=== PATIENT | male | born 1955 | race Two or more races ===

== ENCOUNTER → 2024-10-08 | Outpatient (CLI) | payer MEDICARE, MEDICAID, SELFPAY ==
--- NOTE | 2024-10-08 15:33 | XR_ITS ---
Examination: PA lateral chest 2 views TECHNIQUE: Upright PA lateral chest 2 views Exam date and time: October 08, 2024 1538 hours Comparison June 21, 2023 INDICATIONS: Coughing beginning 4 days ago. FINDINGS: Mild pneumonia left base obscuring detail left hemidiaphragm Normal heart size Right lung clear IMPRESSION: Mild pneumonia left base
== END | disposition home or self-care (01) ==
PROVIDERS: PCP Family Medicine; Referring Provider Family Medicine; Visit Provider Family Medicine
DX: J18.9 Pneumonia, unspecified organism (principal)
CPT/HCPCS: 71046

== ENCOUNTER 2024-12-04 07:55 | Day surgery (SDC) | payer MEDICARE, MEDICAID, SELFPAY ==
[2024-12-03 14:40] VITALS: BMI 28.7
[2024-12-04] VITALS (8 sets, daily range): BP systolic 122–149; BP diastolic 64–70; PULSE 53–66; RESP 10–17; TEMP 36.2–36.4; O2SAT 93–98; BMI 29.1
[2024-12-04] MEDS: BENZOCAINE 20% (Hurricaine) SPRAY 1 DOSE TOP (09:49)
[2024-12-04] MEDS: MIDAZOLAM INJ 1 MG/ML VIAL 2 ML (ASD USE ONLY) 2 MG IVP (09:56)
[2024-12-04] MEDS: fentaNYL CIT INJ 50 mCg/ML AMP 2ML (ASD USE ONLY) IVP (09:56)
[2024-12-04] MEDS: DiphenhydrAMINE INJ 50 MG/ML VIAL 25 MG IVP (09:57)
[2024-12-04] MEDS: RINGERS LACTATED 1000 ML 1,000 ML 125 ML IV (09:58)
--- NOTE | 2024-12-04 10:19 | SUR.PHASEII ---
PT MORE AWAKE SITING IN THE GURNEY AND DRINKING WATER.
== END 2024-12-04 10:42 | disposition home or self-care (01) ==
PROVIDERS: PCP Family Medicine; Referring Provider Internal Medicine Gastroenterology; Visit Provider Internal Medicine Gastroenterology
PROC: (CPT 43239; principal; 2024-12-04 08:45)
DX: K29.70 Gastritis, unspecified, without bleeding (principal); K29.50 Unspecified chronic gastritis without bleeding; K20.80 Other esophagitis without bleeding
CPT/HCPCS: 43239; J1200; J2250; J3010; J7120; A9270

== ENCOUNTER 2024-12-06 07:07 | Day surgery (SDC) | payer MEDICARE, MEDICAID, SELFPAY ==
[2024-12-05 11:06] VITALS: BMI 28.7
[2024-12-06] VITALS (11 sets, daily range): BP systolic 125–171; BP diastolic 58–86; PULSE 45–55; RESP 11–18; TEMP 36.3–36.6; O2SAT 93–99; BMI 28.3
[2024-12-06] MEDS: MIDAZOLAM INJ 1 MG/ML VIAL 2 ML (ASD USE ONLY) 2 MG IVP (09:03)
[2024-12-06] MEDS: RINGERS LACTATED 1000 ML 1,000 ML 125 ML IV (09:03)
[2024-12-06] MEDS: fentaNYL CIT INJ 50 mCg/ML AMP 2ML (ASD USE ONLY) 25 MCG IVP (09:03)
== END 2024-12-06 10:13 | disposition home or self-care (01) ==
PROVIDERS: PCP Family Medicine; Referring Provider Internal Medicine Gastroenterology; Visit Provider Internal Medicine Gastroenterology
PROC: 0DBE8ZX Excision of Large Intestine, Via Natural or Artificial Opening Endoscopic, Diagnostic (ICD-10-PCS; CPT 45380; principal; 2024-12-06 08:15)
DX: K52.9 Noninfective gastroenteritis and colitis, unspecified (principal); K64.9 Unspecified hemorrhoids; K31.89 Other diseases of stomach and duodenum; K51.418 Inflammatory polyps of colon with other complication
CPT/HCPCS: 45385; 45380; J2250; J3010; J7120

== ENCOUNTER 2025-01-18 07:28 | Emergency (ER) | payer MEDICARE, MEDICAID, SELFPAY ==
[2025-01-18 07:40] VITALS: BP 149/80; PULSE 59; RESP 18; TEMP 36.7; O2SAT 96; BMI 28.7
[2025-01-18] MEDS: TETRACAINE PF OP SOL 0.5% 4 ML DRPETTE 1 DROP LEFT EYE (07:46)
[2025-01-18] MEDS: FLUORESCEIN SOD 1 MG STRP LEFT EYE (07:46)
--- NOTE | 2025-01-18 07:46 | EDNOTE_ITS ---
<Statement entered by Sara Feliz MD - 01/18/25 15:16> As co-signing physician, I was present and available for consult prn. I concur with the plan and care as documented by the midlevel provider. ED Eye Problem RME/HPI General Chief complaint: Eye Problems Stated complaint: Left eye pain X 3 days Time Seen by Provider: 01/18/25 07:37 Source: patient Arrival date/time: 01/18/25 07:28 69-year-old male with a history of hyperlipidemia, type 2 diabetes presents to the emergency room with a chief complaint of left eye redness and pain x 3 days. Patient states he was working with wood since then his left eye has been hurting. Mode of arrival: ambulatory Limitations: no limitations Related Data Home Medications ?Medication ?Instructions ?Recorded ?Confirmed atorvastatin 40 mg tablet 40 mg PO QDAY 06/05/1912/05 fluticasone propionate 50 1 spray intranasal QDAY 05/1412/05/24 mcg/actuation nasal spray,suspension (Flonase Allergy Relief) glimepiride 4 mg tablet 4 mg PO QAM 06/05/19 5 meclizine 25 mg tablet 25 mg PO QDAY PRN Dizziness 06/05/19 12/05/24 sitagliptin phosphate 50 1 tab PO BIDWM 06/05/1911/12 5/25 mg-metformin 1,000 mg tablet (Janumet) cetirizine 10 mg tablet 10 mg PO QDAY 12/04/2412/06 doxazosin 4 mg tablet 4 mg PO QDAY 12/04/24 empagliflozin 25 mg tablet 25 mg PO QAM 12/04/2412/05 (Jardiance) loratadine 10 mg tablet 10 mg PO Q24H 12/04/2412/06 ondansetron 8 mg disintegrating 8 mg PO Q8H 12/04/24 0 12/05/24 tablet Previous Rx's ?Medication ?Instructions ?Recorded ciprofloxacin HCl 0.3 % eye drops See Rx Instructions ophthalmic 01/18/25 (eye) .COMPLEX #5 mL Allergies Allergy/AdvReac Type Severity Reaction Status Date / Time No Known Allergies Allergy Verified 01/18/25 07:31 Review of Systems Review of Systems Systems Reviewed: All systems reviewed, normal except as documented Constitutional Constitutional: Reports system reviewed and no additional complaints, except as documented, Denies fatigue, Denies fever(s), Denies headache(s) and Denies weakness Eyes Eyes: Reports system reviewed and no additional complaints, except as documented, Reports blurry vision, Denies change in vision, Denies decreased night vision, Denies diplopia, Denies eye discharge, Denies exophthalmos, Denies floaters, Reports irritation, Denies itchy eyes, Denies loss of peripheral vision, Denies loss of vision, Denies other visual disturbances, Denies eye pain, Denies photophobia, Denies requires corrective lenses, Denies seeing flashes, Denies spots in vision and Denies tunnel vision ENT Ears, Nose, Mouth, and Throat: Reports system reviewed and no additional complaints, except as documented, Denies otalgia, Denies headache(s), Denies nasal congestion, Denies throat swelling and Denies vertigo Cardiovascular Cardiovascular: Reports system reviewed and no additional complaints, except as documented, Denies chest pain, Denies dyspnea and Denies dyspnea on exertion Respiratory Respiratory: Reports system reviewed and no additional complaints, except as documented, Denies chest congestion, Denies cough, Denies dyspnea, Denies dyspnea on exertion and Denies wheezing Gastrointestinal Gastrointestinal: Reports system reviewed and no additional complaints, except as documented, Denies abdominal pain, Denies cramping, Denies nausea and Denies vomiting Genitourinary Genitourinary: Reports system reviewed and no additional complaints, except as documented, Denies dysuria and Denies hematuria Musculoskeletal Musculoskeletal: Reports system reviewed and no additional complaints, except as documented and Denies back pain Integumentary/Breasts Skin/Breast: Reports system reviewed and no additional complaints, except as documented and Denies wounds Neurologic Neurologic: Reports system reviewed and no additional complaints, except as documented, Denies confusion, Denies headache(s), Denies lack of coordination, Denies loss of vision, Denies vertigo and Denies weakness Psychiatric Psychiatric: Reports system reviewed and no additional complaints, except as documented, Denies anxiety, Denies confusion, Denies depression, Denies paranoia, Denies suicidal ideation and Denies tactile hallucinations Endocrine Endocrine: Reports system reviewed and no additional complaints, except as documented and Denies fatigue Hematologic/Lymphatic Hematologic/Lymphatic: Reports system reviewed and no additional complaints, except as documented and Denies lymphadenopathy Allergic/Immunologic Allergic/Immunologic: Reports system reviewed and no additional complaints, except as documented, Denies itchy eyes, Denies throat swelling, Denies urticaria and Denies wheezing ED Exam General Limitations: Present no limitations General appearance: Present alert and in no apparent distress Head Head exam: Present atraumatic Eye Eye exam: Present normal appearance, PERRL and EOMI; Absent conjunctival injection, mydriasis, periorbital swelling or periorbital tenderness Expanded Eye Exam Eyelids: left: erythema Pupils: Bilateral: regular, round and reactive Sclera/Conjunctival: left: tenderness ENT ENT exam: Present normal exam, normal oropharynx and mucous membranes moist Neck Neck exam: Present normal inspection, full ROM and trachea midline Chest Chest inspection: Present normal inspection and symmetric chest wall rise Respiratory Respiratory exam: Present normal lung sounds bilaterally Cardiovascular Cardiovascular exam: Present regular rate, normal rhythm and normal heart sounds Abdominal Exam Abdominal exam: Present soft and normal bowel sounds Extremities Exam Extremities exam: Present normal inspection and full ROM Back Exam Back exam: Present normal inspection and full ROM Neurological Exam Neurological exam: Present alert, oriented X3 and CN II-XII intact Psychiatric Psychiatric exam: Present normal affect and normal mood Skin Skin exam: Present warm, dry, intact and normal color Course Quality Measures none Orders Category Date Time Status ED Eye Irrigation ONCE Care 01/18/25 07:40 Active Mora Lamp to Bedside X1 Care 01/18/25 07:40 Completed Fluorescein Sodium [Bio-Kate] Med 01/18/25 07:40 Discontinued 1 mg LEFT EYE X1 ONE TETRACAINE Op Mis 0.5% [Pontocaine Op Mis 0.5%] Med 01/18/25 07:40 Discontinued 1 drop LEFT EYE X1 ONE Vital Signs Vital signs: Vital Signs Temperature 98.0 F 01/18/25 07:40 Pulse Rate 59 L 01/18/25 07:40 Respiratory Rate 18 01/18/25 07:40 Blood Pressure 149/80 H 01/18/25 07:40 Pulse Oximetry (%) 96 01/18/25 07:40 Oxygen Delivery Method Room Air 01/18/25 07:40 Eye MDM Narrative MDM Narrative:: 69-year-old male with a history of hyperlipidemia, type 2 diabetes presents to the emergency room with a chief complaint of left eye redness and pain x 3 days. Patient states he was working with wood since then his left eye has been hurting. Patient is hemodynamically stable and in no apparent distress The patient denies any spots in the vision loss of vision loss of peripheral vision and states his only complaint is irritation in his eye and some mild blurry vision. Physical examination shows a very small foreign body in the left eye next to the iris. A cotton swab was used to remove the foreign body with no complications. A Mora lamp examination was then completed and found a corneal abrasion. There is no ulceration there is no Lyla sign there is no rust ring there is no hyphema Antibiotics are sent to the patient's pharmacy. Patient was educated to follow- up with primary care provider as a referral to an parking lot attendant may be needed if the signs and symptoms continue Patient was discharged and educated to follow-up with primary care provider in the next 24 to 48 hours and return to the emergency room for any evidence of worsening signs or symptoms Patient data External records reviewed:: [facility] previous records Clinical information provided by:: patient Social determinants that could affect healthcare access:: none Patient has the following chronic illnesses:: No chronic illness How is presenting disease/condition affected by chronic disease/condition?: no chronic disease Evaluation data The following diagnostics were reviewed and interpreted by me:: lab results and radiology exam(s) Lab and/or radiology exams considered but not ordered:: Labs and radiology exams considered and ordered Interpretation Summary: N/A Medications / Prescriptions Medications or Prescriptions considered but not ordered:: Medication given Medication administrations:: Medication Administration History Discontinued Medications Fluorescein Sodium (Fluorescein Sod 1 Mg Strp) 1 mg LEFT EYE X1 ONE Stop: 01/18/25 07:41 Last Admin: 01/18/25 07:46 Dose: 1 mg Documented By: NOLVIA Tetracaine HCl (Tetracaine Pf Op Mis 0.5% 4 Ml Drpette) 1 drop LEFT EYE X1 ONE Stop: 01/18/25 07:41 Last Admin: 01/18/25 07:46 Dose: 1 drop Documented By: NOLVIA Comments: MED GIVEN BY PANTRY WORKER LINDSAY Medication given Consultations Consultation(s) initiated? (list below): No Diagnosis Eye Problem Differential Diagnosis: corneal abrasion, conjunctivitis, acute iritis and corneal ulcer Most likely diagnosis given after review of the tests above:: Corneal abrasion Admission Indicated Admission indicated?: not indicated Admission Request Was there a request for admission?: No Disposition Plan Disposition Plan: Discharge Discharge Attestation Discharge Attestation: The patient and all family members were given an opportunity to ask questions and understood the discharge instructions. Discharge instructions specifically effects, indications for sooner follow up or return to the emergency department, and the expected course of current diagnosis. Patient condition: Stable Discharge Plan Plan Patient Disposition: HOME (Self Care) Discharge Disposition comment: Stable Prescriptions/Referrals Prescriptions/Med Rec: New ciprofloxacin HCl 0.3 % drops See Rx Instructions .ROUTE .COMPLEX Qty: 5 0RF Rx Instructions: put 1-2 drps in affected eye(s) every 2hr up to 8 times/day x2days; then 4 times/day x5days No Action atorvastatin 40 mg Tablet 40 mg PO QDAY glimepiride 4 mg Tablet 4 mg PO QAM fluticasone propionate [Flonase Allergy Relief] 50 mcg/actuation Spra y,Suspension 1 spray intranasal QDAY Janumet 50-1,000 mg Tablet 1 tab PO BIDWM meclizine 25 mg tablet 25 mg PO QDAY PRN (Reason: Dizziness) Jardiance 25 mg tablet 25 mg PO QAM cetirizine 10 mg tablet 10 mg PO QDAY Patient Comments: TAKE 1 TABLET BY MOUTH ONCE DAILY loratadine 10 mg tablet 10 mg PO Q24H Patient Comments: TAKE 1 TABLET BY MOUTH ONCE DAILY NEEDED FOR ALLERGIES doxazosin 4 mg tablet 4 mg PO QDAY Patient Comments: TAKE 1 TABLET BY MOUTH ONCE DAILY ondansetron 8 mg tablet,disintegrating 8 mg PO Q8H Patient Comments: DISSOLVE 1 TABLET IN MOUTH EVERY 8 [address]A. [address] 1 TABLET ON TOP OF THE TONGUE WHERE IT WILL DISSOLVE, THEN SWALLOW Problem List Clinical Impression: Corneal abrasion Patient/Caregiver Discharge Instructions Education Materials: ED Corneal Abrasion Additional Instructions: Please follow-up with your primary care provider in the next 24 to 48 hours. If your signs symptoms continue a referral to an parking lot attendant may be indicated. Antibiotics are sent to your pharmacy please pick them up and take them as indicated For any evidence of worsening signs or symptoms return to the emergency room immediately Print Language: Ukrainian Stand Alone Forms: Brooke Award Info., Patient Portal Info Letter PA/MARIA TERESA Supervising Physician PA/MARIA TERESA Supervising Physician: Dr. FELIZ
== END 2025-01-18 10:05 | disposition home or self-care (01) ==
LOC: SERX 08:30
PROVIDERS: Emergency Provider Nurse Practitioner Family
DX: S05.02XA Injury of conjunctiva and corneal abrasion without foreign body, left eye, initial encounter (principal); X58.XXXA Exposure to other specified factors, initial encounter
CPT/HCPCS: 99283

== ENCOUNTER 2025-03-16 14:43 | Emergency (ER) | payer OTHER, SELFPAY ==
[2025-03-16 14:44] VITALS: BMI 28.7
[2025-03-16 16:30] VITALS: BP 122/73; PULSE 97; RESP 18; TEMP 36.8; O2SAT 96
--- NOTE | 2025-03-16 16:38 | EKG_ITS ---
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: : 1955 Requested By: Milagros Sandhu Order Number: [id number] Reading MD: Milagros Sandhu Measurements Intervals [place] Rate: 89 P: 34 NH: 200 QRS: -58 QRSD: 104 T: 47 QT: 352 QTc: 429 Interpretive Statements SINUS RHYTHM WITH SINUS ARRHYTHMIA INCOMPLETE RIGHT BUNDLE BRANCH BLOCK [90+ ms QRS DURATION, TERMINAL R IN V1/V2, 40+ ms S IN I/aVL/V4/V5/V6] LEFT ANTERIOR FASCICULAR BLOCK [QRS AXIS <= -45, QR IN I, RS IN II] POSSIBLE ANTERIOR MYOCARDIAL INFARCTION , PROBABLY OLD [30 ms Q WAVE IN V3/V4, OR R < 0.2 mV IN V4] Compared to ECG 03/19/2024 08:47:02 Incomplete right bundle-branch block now present Left anterior fascicular block now present Myocardial infarct finding now present Sinus bradycardia no longer present /store/S0/[id number].pdf
--- NOTE | 2025-03-16 16:38 | XR_ITS ---
Examination: PA chest single view Technique: Upright PA chest single view Date and time: March 16, 2025, 1645 hrs. Indications: Chest pain dizziness beginning 3 days ago. Findings: Normal heart size. Accentuation of the basilar bronchovascular markings. No lobar pneumonia or pulmonary edema Impression: Basilar bronchitis pattern
--- NOTE | 2025-03-16 16:38 | XR_ITS ---
Examination: CT brain head without contrast. 2-D sagittal coronal reconstructions Date and time of exam:March 16, 2025, 1823 hrs. Indications: Left-sided headache and ear pain today Comparison: March 19, 2024 CTDI: vol (mGy):56.6 DLP: (mGycm):1132 Technique: Multiple CT axial sections of the brain have been obtained, 5 mm slice thickness. Contrast has not been administered. 2-D sagittal, coronal reconstructions have been obtained Low dose protocols were performed. One or more of the following dose reduction techniques were used; automated exposure control, adjustment of the mA and/or KV according to patient size, use of iterative reconstruction technique. Findings: No significant ventricular enlargement. Intra-axial or extra-axial hemorrhage density is not seen. No mass effect or midline shift Basal cisterns are not remarkable. Fourth ventricle is midline. Cranial vault intact. Negative for chronic or acute mastoiditis Impression: Negative for acute hemorrhage, mass effect or midline shift
--- NOTE | 2025-03-16 16:40 | PD.EDRME ---
Rapid Medical Screening Exam E Arrival date/time: 03/16/25 14:43 This is a 69-year-old male that comes in with complaints of a headache for the past 4 days. Patient is also complaining of dizziness, blurry vision, nonstop tinnitus to bilateral ears. Patient states that he feels like his tongue is swollen but does not think it is actually swollen. Patient also feels nauseated. Patient denies loss of vision double vision, focal weakness, slurred speech, fever or chills. Patient reports occipital area pain. Patient reports history of diabetes and high blood pressure. Patient states that prior to coming to the emergency room he had a couple episodes of sharp pain to his chest but that has subsided. I have greeted and performed a focused initial assessment of this patient. Initial appropriate labs ordered at this time. A comprehensive ED assessment and evaluation of the patient and analysis of all test and completion of medical decision making process will be conducted by additional ED provider. Chief Complaint: Headache Time Seen by Provider: 03/16/25 14:47 Vital signs: Vital Signs Temperature 98.3 F 03/16/25 16:30 Pulse Rate 97 03/16/25 16:30 Respiratory Rate 18 03/16/25 16:30 Blood Pressure 122/73 03/16/25 16:30 Pulse Oximetry (%) 96 03/16/25 16:30 Oxygen Delivery Method Room Air 03/16/25 16:30
[2025-03-16 17:06] LABS: Collection Type, Urine Voided; Squamous Epithelial Cell,Urine 0 /hpf (0-5); WBC,Urine 0 /hpf (0-5)
[2025-03-16 17:11] LABS: Basophils # (Auto) 0.1 Thou/mm3 (0.0-0.2); Basophils % (Auto) 1 % (0-2.5); Eosinophils # (Auto) 0.1 Thou/mm3 (0.0-0.5); Eosinophils % (Auto) 1 % (0-10); Hematocrit 47.9 % (41.0-53.0); Hemoglobin 15.9 g/dL (13.5-16.0); Immature Granulocytes Auto 0.02 Thou/mm3 (0.00-0.00); Lymphocytes # (Auto) 2.6 Thou/mm3 (1.0-4.8); Lymphocytes % (Auto) 31 % (10-50); Mean Corpuscular HGB Conc 33.2 g/dl (31.0-37.0); Mean Corpuscular Hemoglobin 28.2 pg (25.0-35.0); Mean Corpuscular Volume 85 fL (80-100); Monocytes # (Auto) 0.8 Thou/mm3 (0.0-0.8); Monocytes % (Auto) 10 % (0-12); Neutrophils # (Auto) 4.7 Thou/mm3 (1.8-7.7); Neutrophils % (Auto) 57 % (37-80); Nucleated Red Blood Cell # 0.00 Thou/mm3 (0.00-0.00); Nucleated Red Blood Cell % 0 /100 WBC (0); Platelet Count 179 Thou/mm3 (140-440); RDW Standard Deviation 42.5 fL (35.1-43.9); Red Blood Count 5.64 Miln/mm3 (4.50-5.90); White Blood Count 8.2 Thou/mm3 (3.8-10.6)
[2025-03-16 17:18] LABS: Bilirubin,Urine Negative (Negative); Blood,Urine Negative (Negative); Clarity,Urine Clear (Clear/Hazy); Color,Urine Yellow (Lt Yel-Yel); Culture Indicated,Urine Not Indicated; Glucose, Urine 4+ (Negative); Ketones,Urine Trace (Negative); Leukocyte Esterase,Urine Negative (Negative); Nitrite,Urine Negative (Negative); PH,Urine 6.0 (5.0-7.0); Protein,Urine Negative (Neg - Trace); RBC,Urine < 1 /hpf (0-3); Specific Gravity,Urine 1.027 (1.001-1.035); Urobilinogen,Urine Negative mg/dL (0.0-1.0)
[2025-03-16 17:26] LABS: INR 1.1 (0.9-1.3); Prothrombin Time 11.4 Seconds (9.0-12.2)
[2025-03-16 17:29] LABS: B-Type Natriuretic Peptide 24 pg/mL (0-100)
[2025-03-16 17:30] LABS: Amphetamine/Methamp Scrn,U Negative (Negative); Barbiturate Screen,Urine Negative (Negative); Benzodiazepines Screen,Urine Negative (Negative); Benzoylecgonine Screen, Ur Negative (Negative); Fentanyl Screen,Urine Negative (Negative); Opiate Screen,Urine Negative (Negative); THC Screen,Urine Negative (Negative)
[2025-03-16 17:37] LABS: Alanine Aminotransferase 24 U/L (10-49); Albumin, Serum 4.4 gm/dL (3.4-4.8); Albumin/Globulin Ratio 1.9 (1.2-2.2); Alkaline Phosphatase 58 U/L (46-116); Anion Gap 10 (7-16); Aspartate Amino Transferase 23 U/L (0-34); BUN/Creatinine Ratio 16 Ratio (12-20); Bilirubin,Total 0.6 mg/dL (0.3-1.2); Blood Urea Nitrogen 23 mg/dL (9-23); Calcium 9.7 mg/dL (8.3-10.6); Calcium (Corrected) 9.7 mg/dL (8.5-10.1); Carbon Dioxide 26.5 mMol/L (20.0-31.0); Chloride 107 mMol/L (98-107); Creatinine (Component) 1.4 mg/dL (0.6-1.3); Estimated Creatinine Clearance 58.0 mL/min (>60); Globulin 2.3 gm/dL (2.3-3.5); Glucose 108 mg/dL (74-106); Osmolality,Calculated 289 (275-295); Potassium 4.6 mMol/L (3.4-5.1); Sodium 143 mMol/L (136-145); Total Protein 6.7 gm/dL (5.7-8.2); Troponin I < 0.002 ng/mL (0.0-0.045); eGFR 55 See Note
--- NOTE | 2025-03-16 18:28 | PD.EDADULT ---
ED General RME/HPI General Chief complaint: Headache Stated complaint: POSTERIOR DENT WITH RINGING EARS & DIZZY, N/V Time Seen by Provider: 03/16/25 14:47 Arrival date/time: 03/16/25 14:43 RME / HPI RME / HPI narrative: 03/16/25 14:43 Scooby is a 69 y/o male who comes in for evaluation for bilateral tinnitus with associated dizziness when standing up. Pt reports that this has been worsening over time, however they got bad enough today for him to come get evaluated. Denies any vomiting chest pain or shortness of breath associated with it. Denies having any syncopal episodes. He says that he is currently getting referred to ENT. He says he uses Debrox drops at home and tries to do ear lavages, however he does not feel like it is working for him. He says he has seen Dr. Donald, neurologist, in the past, however has never seen her in outpatient setting. He does not take aspirin. He has never had a stroke, however his mom has had a stroke before. He says that his dad has had hearing loss. Denies any vision changes. No other complaints at this time Related Data Home Medications ?Medication ?Instructions ?Recorded ?Confirmed atorvastatin 40 mg tablet 40 mg PO QDAY 06/05/19 12/05/24 fluticasone propionate 50 1 spray intranasal QDAY 06/05/19 12/05/24 mcg/actuation nasal spray,suspension (Flonase Allergy Relief) glimepiride 4 mg tablet 4 mg PO QAM 06/05/19 12/05/24 meclizine 25 mg tablet 25 mg PO QDAY PRN Dizziness 06/05/19 12/05/24 sitagliptin phosphate 50 1 tab PO BIDWM 06/05/19 12/05/24 mg-metformin 1,000 mg tablet (Janumet) cetirizine 10 mg tablet 10 mg PO QDAY 12/04/24 12/06/24 doxazosin 4 mg tablet 4 mg PO QDAY 12/04/24 12/05/24 empagliflozin 25 mg tablet 25 mg PO QAM 12/04/24 12/05/24 (Jardiance) loratadine 10 mg tablet 10 mg PO Q24H 12/04/24 12/06/24 ondansetron 8 mg disintegrating 8 mg PO Q8H 12/04/24 12/05/24 tablet Previous Rx's ?Medication ?Instructions ?Recorded ciprofloxacin HCl 0.3 % eye drops See Rx Instructions ophthalmic 01/18/25 (eye) .COMPLEX #5 mL Allergies Allergy/AdvReac Type Severity Reaction Status Date / Time No Known Allergies Allergy Verified 03/16/25 14:47 Review of Systems Review of Systems Narrative Review of Systems: Constitutional: No fever, chills, fatigue, weakness, weight loss HEENT: No eye pain, vision loss, ear pain, hearing loss, dysphagia, +tinnitus Cardiovascular: No chest pain, palpitations, edema, pain with walking Respiratory: No cough, shortness of breath, wheezing GI: No NVD, abdominal pain, constipation, blood in stool, loss of appetite, heartburn Extremities: No presence of pitting edema MSK: No back pain, joint pain, joint swelling Neuro: No dizziness, numbness, weakness, headaches, seizures, tremors Psych: No anxiety, depression ED Exam Narrative Physical exam: General: AAOx3, NAD, HEENT: Moist mucous membranes, conjunctiva clear, EOMI, PERRLA, difficulty visualizing thymic membranes in both ears bilaterally due to cerumen Cardiovascular: S1, S2, radial pulses +2 bilat, RRR Pulmonary: CTAB bilat no cough, no wheezing GI: No tenderness to light or deep palpitation, no guarding, rigidity, rebound tenderness or distension Extremities: No presence of trace or pitting edema in lower extremities bilaterally, dorsalis pedis pulses +2 bilaterally Neuro: AAOx3, no focal motor or sensory deficits in the UE or LE bilat Psych: Good judgement, thought and behavior Course Quality Measures none Orders Category Date Time Status ED Ear Irrigation X1 Care 03/16/25 19:11 Completed EKG (ED ONLY) *Do not use* NOW Care 03/16/25 16:39 Completed Miscellaneous Nursing Order NOW Care 03/16/25 20:[address] head/brain wo con Stat Exams 03/16/25 16:38 Completed EKG (ED Only) Stat Exams 03/16/25 16:38 Draft XR chest 1V Stat Exams 03/16/25 16:38 Completed BNP [B-Type Natriuretic Peptide] Stat Lab 03/16/25 16:54 Completed CBC Stat Lab 03/16/25 16:54 Completed Comprehensive Metabolic Panel Stat Lab 03/16/25 16:54 Completed Drug Screen,Urine Stat Lab 03/16/25 17:02 Completed PT [Prothrombin Time with INR] Stat Lab 03/16/25 16:54 Completed Troponin I Stat Lab 03/16/25 16:54 Completed Urinalysis, C/S if Indicated Stat Lab 03/16/25 17:02 Completed Metoclopramide [Reglan] Med 03/16/25 19:12 Discontinued 10 mg PO X1 ONE Vital Signs Vital signs: Vital Signs Temperature 98.3 F 03/16/25 16:30 Pulse Rate 97 03/16/25 16:30 Respiratory Rate 18 03/16/25 16:30 Blood Pressure 122/73 03/16/25 16:30 Pulse Oximetry (%) 96 03/16/25 16:30 Oxygen Delivery Method Room Air 03/16/25 16:30 Discharge Plan Plan Patient Disposition: Elopement Discharge Disposition comment: PT WALKED OUT OF ED AT THIS TIME. Prescriptions/Referrals Prescriptions/Med Rec: No Action atorvastatin 40 mg Tablet 40 mg PO QDAY glimepiride 4 mg Tablet 4 mg PO QAM fluticasone propionate [Flonase Allergy Relief] 50 mcg/actuation [place],Suspension 1 spray intranasal QDAY Janumet 50-1,000 mg Tablet 1 tab PO BIDWM meclizine 25 mg tablet 25 mg PO QDAY PRN (Reason: Dizziness) Jardiance 25 mg tablet 25 mg PO QAM cetirizine 10 mg tablet 10 mg PO QDAY Patient Comments: TAKE 1 TABLET BY MOUTH ONCE DAILY loratadine 10 mg tablet 10 mg PO Q24H Patient Comments: TAKE 1 TABLET BY MOUTH ONCE DAILY NEEDED FOR ALLERGIES doxazosin 4 mg tablet 4 mg PO QDAY Patient Comments: TAKE 1 TABLET BY MOUTH ONCE DAILY ondansetron 8 mg tablet,disintegrating 8 mg PO Q8H Patient Comments: DISSOLVE 1 TABLET IN MOUTH EVERY 8 HOURS NEEDED FOR NAUSEA. PLACE 1 TABLET ON TOP OF THE TONGUE WHERE IT WILL DISSOLVE, THEN SWALLOW ciprofloxacin HCl 0.3 % drops See Rx Instructions .ROUTE .COMPLEX Qty: 5 0RF Rx Instructions: put 1-2 drps in affected eye(s) every 2hr up to 8 times/day x2days; then 4 times/day x5days Referrals: Xavier Flores MD [Primary Care Provider, Family Practice] - In 1 week Problem List Clinical Impression: At risk for elopement Patient/Caregiver Discharge Instructions Print Language: Mongolian MDM Narrative MDM hospital course (for use when minimal MDM required): 1919: Upon examination of ears with otoscope, it appears that the patient will need ear lavage. Will also give patient Reglan for associated pain. Head CT negative. Pt will have ear lavage 2100: Will repeat ear lavage 2311: Informed pt had eloped Clinical Information Other: Partial RBBB, Qt 420, Sinus rhythm, no ST changes Medication Administration(s) Medication Administration History Discontinued Medications Metoclopramide HCl (Metoclopramide 5 Mg Tablet) 10 mg PO X1 ONE Stop: 03/16/25 19:13 Last Admin: 03/16/25 19:32 Dose: 10 mg Documented By: OA Diagnosis Diagnoses ruled out and/or further discussions: Cerumen impaction, acute otitis media, acute otitis externa, atypical migraine, CVA
[2025-03-16] MEDS: METOCLOPRAMIDE 5 MG TABLET 10 MG PO (19:32)
== END 2025-03-16 22:11 | disposition left against medical advice (07) ==
PROVIDERS: Nurse Practitioner Family; Emergency Provider Emergency Medicine; PCP Family Medicine
DX: H61.23 Impacted cerumen, bilateral (principal); I45.10 Unspecified right bundle-branch block; R07.9 Chest pain, unspecified; Z53.29 Procedure and treatment not carried out because of patient's decision for other reasons; Z82.3 Family history of stroke
CPT/HCPCS: 69209; 36415; 70450; 71045; 80053; 80307; 81001; 83880; 84484; 85025; 85610; 93005; 99284; A9270

== ENCOUNTER → 2025-05-23 | Outpatient (CLI) | payer MEDICARE, SELFPAY ==
[2025-05-23 13:33] LABS: Basophils # (Auto) 0.0 Thou/mm3 (0.0-0.2); Basophils % (Auto) 0 % (0-2.5); Eosinophils # (Auto) 0.1 Thou/mm3 (0.0-0.5); Eosinophils % (Auto) 1 % (0-10); Hematocrit 46.4 % (41.0-53.0); Hemoglobin 15.9 g/dL (13.5-16.0); Immature Granulocytes Auto 0.01 Thou/mm3 (0.00-0.00); Lymphocytes # (Auto) 2.1 Thou/mm3 (1.0-4.8); Lymphocytes % (Auto) 30 % (10-50); Mean Corpuscular HGB Conc 34.3 g/dl (31.0-37.0); Mean Corpuscular Hemoglobin 28.5 pg (25.0-35.0); Mean Corpuscular Volume 83 fL (80-100); Monocytes # (Auto) 0.7 Thou/mm3 (0.0-0.8); Monocytes % (Auto) 11 % (0-12); Neutrophils # (Auto) 3.9 Thou/mm3 (1.8-7.7); Neutrophils % (Auto) 57 % (37-80); Nucleated Red Blood Cell # 0.00 Thou/mm3 (0.00-0.00); Nucleated Red Blood Cell % 0 /100 WBC (0); Platelet Count 189 Thou/mm3 (140-440); RDW Standard Deviation 39.8 fL (35.1-43.9); Red Blood Count 5.57 Miln/mm3 (4.50-5.90); White Blood Count 6.9 Thou/mm3 (3.8-10.6)
[2025-05-23 13:54] LABS: Glucose Estimated Average 160 mg/dL (80-131); Hemoglobin A1C 7.2 % Hgb (4.8-6.0)
[2025-05-23 14:31] LABS: Creatinine MALB Rnd Ur 86 mg/dL (30-125); Microalbumin, Random Urine < 3 mg/L (0-300)
[2025-05-23 14:48] LABS: Alanine Aminotransferase 27 U/L (10-49); Albumin, Serum 4.4 gm/dL (3.4-4.8); Albumin/Globulin Ratio 1.6 (1.2-2.2); Alkaline Phosphatase 59 U/L (46-116); Anion Gap 10 (7-16); Aspartate Amino Transferase 20 U/L (0-34); BUN/Creatinine Ratio 19 Ratio (12-20); Bilirubin,Total 0.4 mg/dL (0.3-1.2); Blood Urea Nitrogen 23 mg/dL (9-23); Calcium 9.4 mg/dL (8.3-10.6); Calcium (Corrected) 9.4 mg/dL (8.5-10.1); Carbon Dioxide 23.9 mMol/L (20.0-31.0); Cardiac Risk Estimate 4.8 RATIO (4.0-6.7); Chloride 105 mMol/L (98-107); Cholesterol 174 mg/dL (132-200); Creatinine (Component) 1.2 mg/dL (0.6-1.3); Free T4 (Free Thyroxine) 1.56 ng/dL (0.89-1.76); Globulin 2.7 gm/dL (2.3-3.5); Glucose 206 mg/dL (74-106); HDL Cholesterol 36 mg/dL (40-60); LDL Cholesterol,Calculated 90 mg/dL (0-130); Osmolality,Calculated 287 (275-295); Potassium 4.6 mMol/L (3.4-5.1); Sodium 139 mMol/L (136-145); Thyroid Stimulating Hormone 1.73 uIU/mL (0.55-4.78); Total Protein 7.1 gm/dL (5.7-8.2); Triglycerides 240 mg/dL (30-150); eGFR > 60 See Note
== END | disposition home or self-care (01) ==
LOC: COPL 12:07
PROVIDERS: PCP Family Medicine; Referring Provider Family Medicine; Visit Provider Family Medicine
DX: E11.65 Type 2 diabetes mellitus with hyperglycemia (principal); E78.1 Pure hyperglyceridemia; D50.0 Iron deficiency anemia secondary to blood loss (chronic); E03.2 Hypothyroidism due to medicaments and other exogenous substances
CPT/HCPCS: 36415; 80053; 80061; 82043; 82570; 83036; 84439; 84443; 85025